=== PATIENT | female | born 1950 | race Caucasian/White ===

== ENCOUNTER 2017-05-10 14:05 | Outpatient (RCR) | payer OTHER | END 2017-05-11 14:29 | disposition home or self-care (01) | LOC: WSPT 14:05 | DX: Z01.818 Encounter for other preprocedural examination (principal) | CPT/HCPCS: G8984-GP; G8985-GP ==

== ENCOUNTER 2017-08-09 10:30 | Outpatient (RCR) | payer OTHER | END 2017-08-17 13:53 | disposition home or self-care (01) | LOC: WSPT 10:30 | DX: Z01.818 Encounter for other preprocedural examination (principal) | CPT/HCPCS: G8979-GP; G8984-GP; G8985-GP ==

== ENCOUNTER → 2018-06-06 | Outpatient (CLI) | payer OTHER ==
[~2018-06-06] MED LIST: BUSPAR10 MG PO; EFFE25TA; FLEXERIL 1010 MG/TAB PO; LYRICA 50MG CAP50 MG PO; NORCO 325 MG-51 TAB PO; PERCOCET 325 MG1 TA2 PO; PRINIVIL5 MG PO; ZANAFLEX2 MG PO; ZESTRIL 5MG5 MG PO
== END ==
LOC: MC.RAD 16:00
DX: Z12.31 Encounter for screening mammogram for malignant neoplasm of breast (principal); N63.20 Unspecified lump in the left breast, unspecified quadrant

== ENCOUNTER → 2018-06-09 | Outpatient (CLI) | payer OTHER | LOC: MC.RAD 09:30 | DX: N60.02 Solitary cyst of left breast (principal) | CPT/HCPCS: G0279 ==

== ENCOUNTER → 2018-12-27 | Outpatient (CLI) | payer OTHER | LOC: COL.RAD 10:19 | DX: K44.9 Diaphragmatic hernia without obstruction or gangrene (principal) ==

== ENCOUNTER → 2019-07-05 | Outpatient (CLI) | payer OTHER | LOC: MC.RAD 12:30 | DX: Z12.31 Encounter for screening mammogram for malignant neoplasm of breast (principal) ==

== ENCOUNTER → 2020-07-10 | Outpatient (CLI) | payer OTHER | LOC: MC.RAD 10:30 | DX: Z12.31 Encounter for screening mammogram for malignant neoplasm of breast (principal) ==

== ENCOUNTER → 2021-09-08 | Outpatient (CLI) | payer OTHER ==
[~2021-09-08] MED LIST changes: +BUSPIRONE HCL7.5 MG PO; +EFFEXOR 75M75 MG/TAB PO; +EFFEXOR-XR150 MG PO; +FERROUSAL325 MG PO; +PROTONIX 40MG T40 MG PO; +ZANAFLEX 4MG TAB4 MG PO; +ZESTRIL30 MG PO
== END ==
LOC: MC.RAD 08-14 10:00
DX: Z12.31 Encounter for screening mammogram for malignant neoplasm of breast (principal)

== ENCOUNTER 2021-09-23 07:23 | Day surgery (SDC) | payer OTHER ==
[~2021-09-23] VITALS: Ht 157.5 cm; Wt 69.1 kg
[2021-09-23] VITALS (11 sets, daily range): BP systolic 120–149; BP diastolic 73–101; PULSE 77–113; TEMP 97–98.9
[~2021-09-23 07:23] MED LIST changes: -BUSPIRONE HCL7.5 MG PO; -EFFEXOR 75M75 MG/TAB PO; -EFFEXOR-XR150 MG PO; -FERROUSAL325 MG PO; -PROTONIX 40MG T40 MG PO; -ZANAFLEX 4MG TAB4 MG PO; -ZESTRIL30 MG PO
[2021-09-23] MEDS ORDERED: EFFEXOR-XR150 MG PO (08:08)
[2021-09-23] MEDS ORDERED: BUSPIRONE HCL7.5 MG PO (08:09)
[2021-09-23] MEDS ORDERED: EFFEXOR 75M75 MG/TAB PO (08:09)
[2021-09-23] MEDS ORDERED: ZANAFLEX 4MG TAB4 MG PO (08:10)
[2021-09-23] MEDS ORDERED: FERROUSAL325 MG PO (08:10)
[2021-09-23] MEDS ORDERED: ZESTRIL30 MG PO (08:11)
[2021-09-23] MEDS ORDERED: PROTONIX 40MG T40 MG PO (08:11)
--- NOTE | 2021-09-23 09:53 | NUR ---
Initial visit; Patient and her thanked Staff [employer] Officer for offering comfort and prayer for her prior to her surgical procedure. Staff [employer] Officer wished patient a thorough and rapid recovery and offered God's blessings.
--- NOTE | 2021-09-23 12:15 | NUR ---
Pt. to the floor from PACU. Pt. is A&OX3, assessment complete. IV to lt. wrist patent. Pt. denies pain or other needs, call light within reach.
--- NOTE | 2021-09-23 19:55 | NUR ---
Assessment complete. A&Ox4. Denies nausea/shortness of breath. Noted to have orbital/facial edema. States doctor is aware-denies swelling to tongue/throat. Rating pain 5/10 to neck/shoulder-described as constant ache. [place] given per dr begum. Discussed importance of ambulation-will ambulate after pain meds kick in. Lap sites [id number]. Plan of care discussed for this shift to include pain control/meds/calling for questions/concerns. Verbalizes understanding. Call light in reach. Will monitor.
--- NOTE | 2021-09-23 20:15 | NUR ---
Patient up out of bed at this time to ambulate. C/O shoulder/neck pain. Ambulated approx 500 feet. Tolerated well.
--- NOTE | 2021-09-23 23:24 | NUR ---
IS given with instruction on use by this nurse.
[2021-09-24 03:45] VITALS: BP 134/78; PULSE 70; TEMP 99.4
--- NOTE | 2021-09-24 05:35 | NUR ---
Amador had an uneventful night. Rested later in shift. Received on dose of norco for pain. Denied nausea/shortness of breath. VS remained stable after receiving BP medications. Tolerating PO. Facial swelling is better this morning. Denies current needs. Call light in reach. Will monitor.
[2021-09-24 07:13] VITALS: BP 114/72; PULSE 101; TEMP 98.7
--- NOTE | 2021-09-24 09:41 | NUR ---
Blueprint Assembler met with patient to discuss discharge planning. Patient lives in [place] and sees Dr. Rowley for primary care. Patient obtains medications from [facility] with no difficulties and does not use any DME. Patient is independent with ADLS and plans to return home at time of discharge. Patient lives with her , Tylor who is at bedside. Patient advised that Tylor is her DPOA-HC. Discharge Plan: Home
--- NOTE | 2021-09-24 10:06 | NUR ---
Assessment completed, A/Ox4, noted orbital edema stated doctor informed, with 6 lap sites with band aids clean, dry and intact, plan of care discussed, call light and personal items within reach, complained of pain, [place] given and stated pain is better.
[2021-09-24] MEDS ORDERED: NORCO 325 MG-51 TAB PO (11:30)
--- NOTE | 2021-09-24 12:46 | NUR ---
Follow-up visit; Patient and her thanked Recovery Room Rn for looking in on her and wishing her well and offering God's blessings. Patient requested Recovery Room Rn contact a Dietitian for her. Recovery Room Rn did so.
== END 2021-09-24 12:37 | disposition home or self-care (01) ==
LOC: SDCO 07:23 → SURG 14:11 → SDCO 09-24 12:37
DX: K44.9 Diaphragmatic hernia without obstruction or gangrene (principal); K31.89 Other diseases of stomach and duodenum; R06.09 Other forms of dyspnea; D50.9 Iron deficiency anemia, unspecified; I10 Essential (primary) hypertension
CPT/HCPCS: OP; C1781; J0690; J1100; J1885; J2370; J2405; J2704; J3010; J7120

== ENCOUNTER 2022-04-07 09:58 | Outpatient (RCR) | payer OTHER ==
[~2022-04-07 09:58] MED LIST changes: +BENTYL 20MG20 MG/TAB PO; +BUSPIRONE HCL7.5 MG PO; +EFFEXOR 75M75 MG/TAB PO; +EFFEXOR-XR150 MG PO; +FERROUSAL325 MG PO; +PROTONIX 40MG T40 MG PO; +REGLAN 10MG10 MG/TAB PO; +ZANAFLEX 4MG TAB4 MG PO; +ZESTRIL30 MG PO
== END 2022-05-07 | disposition home or self-care (01) ==
LOC: WSPT
DX: M17.11 Unilateral primary osteoarthritis, right knee (principal)

== ENCOUNTER 2022-06-03 09:00 | Outpatient (RCR) | payer OTHER | END 2022-06-06 | disposition home or self-care (01) | LOC: WSPT | DX: Z96.651 Presence of right artificial knee joint (principal) | CPT/HCPCS: G0283-GP ==

== ENCOUNTER → 2023-09-30 | Outpatient (CLI) | payer OTHER | LOC: MC.RAD 06:05 | DX: Z12.31 Encounter for screening mammogram for malignant neoplasm of breast (principal) ==